=== PATIENT | male | born 1950 | race Caucasian/White ===

== ENCOUNTER → 2017-09-30 | Outpatient (CLI) | payer OTHER ==
[~2017-09-30] MED LIST: ASPIR 8181 M1 PO; LEVETIRACETAM500 MG PO; LOPRESSOR25 MG PO; NORVASC5 MG PO
== END | disposition home or self-care (01) ==
LOC: EEG 08:37
DX: R56.9 Unspecified convulsions (principal)
CPT/HCPCS: 95819